=== PATIENT | male | born 1950 | race Caucasian/White ===

== ENCOUNTER 2019-02-02 08:25 | Day surgery (SDC) | payer MEDICARE ==
[2019-01-28 12:47] LABS: BASOPHILS % (AUTO) 0.5 % (0-1); EOSINOPHILS # (AUTO) 0.2 X10'3 (0-0.9); EOSINOPHILS % (AUTO) 3.1 % (0-6); HEMATOCRIT 43.8 % (42.0-52.0); HEMOGLOBIN 14.8 g/dl (14.0-17.9); LYMPHOCYTES # (AUTO) 1.5 X10'3 (1.1-4.8); LYMPHOCYTES % (AUTO) 18.2 % (21-51); MEAN CORPUSCULAR HGB CONC 33.8 g/dL (33.0-36.5); MEAN CORPUSCULAR VOLUME 91.6 FL (78-98); MEAN PLATELET VOLUME 7.8 FL (7.4-10.4); MONOCYTES # (AUTO) 0.6 X10'3 (0-0.9); MONOCYTES % (AUTO) 7.4 % (2-12); NEUTROPHILS # (AUTO) 5.7 X10'3 (1.8-7.7); NEUTROPHILS % (AUTO) 70.8 % (42-75); PLATELET COUNT 196 X10'3 (140-440); RED BLOOD COUNT 4.78 X10'6 (4.70-6.10); RED CELL DISTRIBUTION WIDTH 12.8 % (11.5-14.5); WHITE BLOOD COUNT 8.1 X10'3 (4.5-11.0)
[2019-01-28 13:05] LABS: ALANINE AMINOTRANSFERASE 46 U/L (12-78); ALBUMIN/GLOBULIN RATIO 1.1 (1.1-1.5); ALKALINE PHOSPHATASE 61 IU/L (46-116); ANION GAP 7 (8-16); ASPARTATE AMINO TRANSFERASE 29 U/L (10-37); BILIRUBIN,TOTAL 0.4 MG/DL (0.1-1.0); BLOOD UREA NITROGEN 14 MG/DL (7-18); BUN/CREATININE RATIO 15.1 (5.4-32.0); CALCIUM 9.2 MG/DL (8.5-10.1); CHLORIDE 106 MMOL/L (99-107); CREATININE 0.93 MG/DL (0.60-1.10); GLUCOSE 117 MG/DL (70-104); POTASSIUM 3.7 MMOL/L (3.5-5.1); SODIUM 143 MMOL/L (135-145); TOTAL CARBON DIOXIDE 29.7 MMOL/L (24-32); TOTAL PROTEIN 7.7 G/DL (6.4-8.2); eGFR 81 ML/MIN
[2019-01-28 13:12] LABS: PARTIAL THROMBOPLASTIN TIME 26 SECONDS (22-32)
[~2019-02-02] VITALS: Ht 177.8 cm; Wt 90.3 kg
[2019-02-02] VITALS (10 sets, daily range): BP systolic 109–155; BP diastolic 71–93
[2019-02-02] MEDS ORDERED: nitroGLYCERIN 0.4mg SUBLingual tab SL PRN (08:45)
[2019-02-02] MEDS ORDERED: LORazepam 0.5 MG tablet PO PRN (08:50)
[2019-02-02] MEDS ORDERED: normal saline 1000ml 1,000 ML IV SCH (08:50)
[2019-02-02] MEDS ORDERED: diphenhydrAMINE 25mg capsule PO PRN (08:50)
[2019-02-02] MEDS ORDERED: LEVO100T PO (09:28)
[2019-02-02] MEDS ORDERED: ATEN-169 PO (09:28)
[2019-02-02] MEDS ORDERED: ZOLP5TAB8 PO (09:28)
[2019-02-02] MEDS ORDERED: AMLO2.5T2 PO (09:28)
[2019-02-02] MEDS ORDERED: SIMV20TA5 PO (09:28)
[2019-02-02] MEDS ORDERED: midazolam 2 mg/2 ml injection ONE (10:53)
[2019-02-02] MEDS ORDERED: fentaNYL/PF 50MCG/1 ML 2ML syringe ONE (10:53)
[2019-02-02] MEDS ORDERED: LIDOcaine 1% (10mg/ml)w/preservative injection 20ml MDV ONE (10:54)
[2019-02-02] MEDS ORDERED: iohexol 350MG/ML 100ml bottle IV ONE (10:54)
[2019-02-02] MEDS ORDERED: iohexol 350 MG/ML 50ML vial IV ONE (10:54)
[2019-02-02] MEDS ORDERED: HYDROcodone/acetaminophen 10/325mg tab PO PRN (12:20)
[2019-02-02] MEDS ORDERED: OXAZEpam 15mg capsule PO PRN (12:20)
[2019-02-02] MEDS ORDERED: proCHLORperazine 10 MG/2 ml inj IV PRN (12:20)
[2019-02-02] MEDS ORDERED: HYDROcodone/acetaminophen 5mg/325mg tablet PO PRN (12:20)
[2019-02-02] MEDS ORDERED: ondansetron/PF 4mg/2ml inj IV PRN (12:20)
[2019-02-03 08:21] LABS: % FREE PSA 35.6 % (.); PSA, FREE 0.32 ng/mL
== END 2019-02-02 17:10 | disposition home or self-care (01) ==
LOC: SSTAY O 08:25
PROVIDERS: ATTEND Internal Medicine Cardiovascular Disease
DX: I25.119 Atherosclerotic heart disease of native coronary artery with unspecified angina pectoris (principal); I10 Essential (primary) hypertension; E78.5 Hyperlipidemia, unspecified; Z98.890 Other specified postprocedural states; Z88.8 Allergy status to other drugs, medicaments and biological substances
CPT/HCPCS: 36415; 71046; 80053; 84153; 84154; 85025; 85610; 85730; 93005; 93458; 99152; 99153; A6257; J1644; J2001; J2250; J3010; J7030; Q0163; Q9967; A4620; C1760; C1769

== ENCOUNTER 2022-01-08 11:34 | Day surgery (SDC) | payer MEDICARE ==
[2022-01-02 13:03] LABS: BASOPHILS % (AUTO) 0.4 % (0-1); EOSINOPHILS # (AUTO) 0.2 X10'3 (0-0.9); EOSINOPHILS % (AUTO) 3.6 % (0-6); HEMATOCRIT 44.2 % (42.0-52.0); HEMOGLOBIN 14.8 g/dl (14.0-17.9); LYMPHOCYTES # (AUTO) 1.4 X10'3 (1.1-4.8); LYMPHOCYTES % (AUTO) 21.7 % (21-51); MEAN CORPUSCULAR HEMOGLOBIN 30.2 PG (27.0-31.0); MEAN CORPUSCULAR HGB CONC 33.4 g/dL (33.0-36.5); MEAN CORPUSCULAR VOLUME 90.6 FL (78-98); MEAN PLATELET VOLUME 8.7 FL (7.4-10.4); MONOCYTES # (AUTO) 0.6 X10'3 (0-0.9); MONOCYTES % (AUTO) 8.7 % (2-12); NEUTROPHILS # (AUTO) 4.2 X10'3 (1.8-7.7); NEUTROPHILS % (AUTO) 65.6 % (42-75); PLATELET COUNT 187 X10'3 (140-440); RED BLOOD COUNT 4.89 X10'6 (4.70-6.10); RED CELL DISTRIBUTION WIDTH 13.2 % (11.5-14.5); WHITE BLOOD COUNT 6.4 X10'3 (4.5-11.0)
[2022-01-02 13:07] LABS: APTT 26 SECONDS (22-32)
[2022-01-02 13:19] LABS: ALANINE AMINOTRANSFERASE 57 U/L (12-78); ALBUMIN 4.3 G/DL (3.4-5.0); ALBUMIN/GLOBULIN RATIO 1.3 (1.1-1.5); ALKALINE PHOSPHATASE 55 IU/L (46-116); ANION GAP 11 (8-16); ASPARTATE AMINO TRANSFERASE 38 U/L (10-37); BILIRUBIN,TOTAL 0.7 MG/DL (0.1-1.0); BLOOD UREA NITROGEN 13 MG/DL (7-18); BUN/CREATININE RATIO 14.6 (5.4-32.0); CALCIUM 8.9 MG/DL (8.5-10.1); CHLORIDE 105 MMOL/L (99-107); CREATININE 0.89 MG/DL (0.60-1.10); GLUCOSE 96 MG/DL (70-104); POTASSIUM 4.1 MMOL/L (3.5-5.1); SODIUM 143 MMOL/L (135-145); TOTAL CARBON DIOXIDE 26.8 MMOL/L (24-32); TOTAL PROTEIN 7.5 G/DL (6.4-8.2); eGFR 84 ML/MIN
[2022-01-08] VITALS (11 sets, daily range): BP systolic 104–181; BP diastolic 57–103
[~2022-01-08] VITALS: Ht 177.8 cm; Wt 88.9 kg
[~2022-01-08 11:34] MED LIST: AMLO2.5T2 PO; ATEN-169 PO; LEVO100T PO; LIDOcaine 1% (10mg/ml)w/preservative injection 20ml MDV ONE; SIMV-42 PO; ZOLP5TAB8 PO; fentaNYL/PF 50MCG/1 ML 2ML syringe ONE; iohexol 350 MG/ML 50ML vial IV ONE; iohexol 350MG/ML 100ml bottle IV ONE; midazolam 1 mg/ML 2ml injection ONE
[2022-01-08] MEDS ORDERED: LORazepam 0.5 MG tablet PO PRN (11:55)
[2022-01-08] MEDS ORDERED: nitroGLYCERIN 0.4mg SUBLingual tab SL PRN (11:55)
[2022-01-08] MEDS ORDERED: diphenhydrAMINE 25mg capsule PO PRN (11:55)
[2022-01-08] MEDS ORDERED: normal saline 1,000 ML IV SCH (11:55)
[2022-01-08] MEDS ORDERED: CLOP75TA34 PO (12:00)
[2022-01-08] MEDS ORDERED: midazolam 1 mg/ML 2ml injection ONE (12:26)
[2022-01-08] MEDS ORDERED: iohexol 350 MG/ML 50ML vial IV ONE (12:44)
[2022-01-08] MEDS ORDERED: fentaNYL/PF 50MCG/1 ML 2ML syringe ONE (12:53)
[2022-01-08] MEDS ORDERED: ondansetron/PF 4mg/2ml inj IV PRN (13:20)
[2022-01-08] MEDS ORDERED: HYDROcodone/acetaminophen 5mg/325mg tablet PO PRN (13:20)
[2022-01-08] MEDS ORDERED: OXAZEpam 15mg capsule PO PRN (13:20)
[2022-01-08] MEDS ORDERED: normal saline 1000ml 1,000 ML IV SCH (13:20)
== END 2022-01-08 19:07 | disposition home or self-care (01) ==
LOC: SSTAY O 11:34
PROVIDERS: ATTEND Internal Medicine Cardiovascular Disease
DX: R94.39 Abnormal result of other cardiovascular function study (principal); I25.10 Atherosclerotic heart disease of native coronary artery without angina pectoris; I35.1 Nonrheumatic aortic (valve) insufficiency; E03.9 Hypothyroidism, unspecified; E78.5 Hyperlipidemia, unspecified; I10 Essential (primary) hypertension; G62.9 Polyneuropathy, unspecified; M13.88 Other specified arthritis, other site; Z86.16 Personal history of COVID-19; Z86.73 Personal history of transient ischemic attack (TIA), and cerebral infarction without residual deficits; Z79.01 Long term (current) use of anticoagulants; Z79.899 Other long term (current) drug therapy
CPT/HCPCS: 36415; 71046; 80053; 85025; 85610; 85730; 93005; 93458; 93567; 99152; 99153; C1760; C1769; J1644; J2250; J3010; J3490; J7030; Q0163; Q9967; A4620; A6258

== ENCOUNTER 2022-08-22 08:27 | Outpatient (CLI) | payer MEDICARE ==
[~2022-08-22 08:27] MED LIST changes: +CLOP75TA34 PO; -LIDOcaine 1% (10mg/ml)w/preservative injection 20ml MDV ONE; -fentaNYL/PF 50MCG/1 ML 2ML syringe ONE; -iohexol 350 MG/ML 50ML vial IV ONE; -iohexol 350MG/ML 100ml bottle IV ONE; -midazolam 1 mg/ML 2ml injection ONE
== END 2022-08-22 23:59 | disposition home or self-care (01) ==
LOC: VAS 08:27
PROVIDERS: ATTEND Internal Medicine Cardiovascular Disease
DX: R22.41 Localized swelling, mass and lump, right lower limb (principal)
CPT/HCPCS: 93971